=== PATIENT | female | born 1945 | race Caucasian/White ===

== ENCOUNTER 2018-05-12 13:56 | Emergency (ER) | payer OTHER, MEDICARE ==
[2018-05-12 14:17] VITALS: BMI 22.6
[2018-05-12 14:21] VITALS: BP 114/68; PULSE 76; RESP 18; TEMP 98.5; O2SAT 99
[2018-05-12] MEDS ORDERED: Lidocaine 5% Patch TD STA (15:04)
[2018-05-12] MEDS ORDERED: Lidocaine 5% Patch TD ONE (15:31)
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
== END 2018-05-12 16:10 | disposition home or self-care (01) ==
LOC: C.ER 13:56
DX: S13.4XXA Sprain of ligaments of cervical spine, initial encounter (principal); V79.9XXA Bus occupant (driver) (passenger) injured in unspecified traffic accident, initial encounter; E05.90 Thyrotoxicosis, unspecified without thyrotoxic crisis or storm

== ENCOUNTER 2018-05-17 10:19 | Emergency (ER) | payer MEDICARE, OTHER ==
[2018-05-17 10:19] VITALS: BMI 22.6
[2018-05-17 10:32] VITALS: RESP 16; TEMP 98.4
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
[2018-05-17 12:50] VITALS: BP 117/75; PULSE 75
[2018-05-17 14:44] VITALS: O2SAT 99
== END 2018-05-17 12:50 | disposition home or self-care (01) ==
LOC: C.ER 10:19
DX: S13.4XXA Sprain of ligaments of cervical spine, initial encounter (principal); W19.XXXA Unspecified fall, initial encounter; Y92.811 Bus as the place of occurrence of the external cause

== ENCOUNTER 2018-08-28 10:12 | Emergency (ER) | payer MEDICARE ==
[2018-08-28 10:13] VITALS: BMI 22.6
[2018-08-28 11:11] VITALS: BP 158/76; PULSE 79; RESP 20; TEMP 98.7; O2SAT 99
[2018-08-28 12:26] LABS: BARBITURATES, UR NEGATIVE (NEGATIVE); BENZODIAZEPINES, UR NEGATIVE (NEGATIVE); OPIATES, UR NEGATIVE (NEGATIVE); PHENCYCLIDINE, UR NEGATIVE (NEGATIVE)
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
== END 2018-08-28 12:34 | disposition home or self-care (01) ==
LOC: C.ER 10:12
DX: Z00.00 Encounter for general adult medical examination without abnormal findings (principal)
CPT/HCPCS: 99282; G0480

== ENCOUNTER 2018-10-26 11:46 | Emergency (ER) | payer MEDICARE ==
[2018-10-26 11:46] VITALS: BMI 22.6
[2018-10-26 11:53] VITALS: TEMP 97.5; O2SAT 98
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
[2018-10-26] MEDS ORDERED: Tdap Vaccine 0.5 ml Vial (10-64 yrs) IM ONE ×2 (13:10→14:51)
--- NOTE | 2018-10-26 14:18 | RAD ---
PROCEDURE: Radiographs of the Right Shoulder HISTORY: pain s/p fall COMPARISON: Right shoulder radiographs performed 01/31/13 FINDINGS: BONES: No acute displaced fracture. The distal clavicle and underlying ribs appear intact. JOINTS: No acute dislocation. Acromioclavicular arthropathy. Mild glenohumeral joint space narrowing. 4 mm calcification adjacent to the humeral head consistent with calcific tendinitis. SOFT TISSUES: Soft tissues appear unremarkable. No evidence of radiopaque foreign body. Atherosclerotic calcifications of the aorta. IMPRESSION: No acute displaced fracture or dislocation evident. If symptoms persist or if there is continued clinical concern, x-ray follow-up in 7-10 days should be considered. 4 mm calcification adjacent to the humeral head consistent with calcific tendinitis. Degenerative changes as above.
--- NOTE | 2018-10-26 14:53 | RAD ---
Date of service: 10/26/2018 PROCEDURE: Radiographs of the Lumbar Spine. HISTORY: pain s/p fall COMPARISON: No prior. FINDINGS: BONES: The vertebral bodies are maintained in height. Normal alignment is maintained. The transverse processes and posterior elements are intact DISC SPACES: There is narrowing of the L5-S1 intervertebral disc space consistent with degenerative disc disease. The remaining intervertebral disc spaces are maintained in height. OTHER FINDINGS: None. IMPRESSION: No acute fracture. Degenerative disc disease at L5-S1.
[2018-10-26 15:01] VITALS: BP 109/64; PULSE 70; RESP 16
== END 2018-10-26 15:00 | disposition home or self-care (01) ==
LOC: C.ER 11:46
DX: S46.911A Strain of unspecified muscle, fascia and tendon at shoulder and upper arm level, right arm, initial encounter (principal); V89.9XXA Person injured in unspecified vehicle accident, initial encounter; M25.561 Pain in right knee; M54.30 Sciatica, unspecified side